=== PATIENT | male | born 1975 | race Caucasian/White ===

== ENCOUNTER 2016-10-31 21:52 | Inpatient (IN) | payer BC, OTHER ==
[~2016-10-31] VITALS: Ht 182.9 cm; Wt 112.1 kg
[2016-10-31] MEDS ORDERED: LISI1TAB6 (22:06)
[2016-10-31] MEDS ORDERED: ASPIRIN 81 MG CHEW (CHILDREN'S ASA) ONE (22:12)
[2016-10-31] MEDS ORDERED: NITROGLYCERIN 2% OINT 1 GM UNIT DOSE PACKET ONE (22:12)
[2016-10-31] MEDS ORDERED: NITROGLYCERIN 2% OINT 1 GM UNIT DOSE PACKET TOP ONE (22:15)
[2016-10-31] MEDS ORDERED: ASPIRIN 81 MG CHEW (CHILDREN'S ASA) PO ONE (22:15)
[2016-10-31 22:22] LABS: BASOPHILS % (AUTO) 1 % (0-10); EOSINOPHILS # (AUTO) 0.1 10^3/uL (0.0-0.3); EOSINOPHILS % (AUTO) 2 % (0-10); LYMPHOCYTES # (AUTO) 2.5 X 10^3 (1.0-4.0); LYMPHOCYTES % (AUTO) 29 % (12-44); MEAN CORPUSCULAR HEMOGLOBIN 29 PG (25-34); MEAN CORPUSCULAR HGB CONC 35 G/DL (32-36); MEAN CORPUSCULAR VOLUME 83 FL (80-99); MEAN PLATELET VOLUME 9.7 FL (7.4-10.4); MONOCYTES # (AUTO) 0.5 X 10^3 (0.0-1.0); MONOCYTES % (AUTO) 6 % (0-12); NEUTROPHILS # (AUTO) 5.5 X 10^3 (1.8-7.8); NEUTROPHILS % (AUTO) 63 % (42-75); PLATELET COUNT 251 10^3/uL (130-400); RED BLOOD COUNT 4.85 10^6/uL (4.35-5.85); RED CELL DISTRIBUTION WIDTH 13.6 % (10.0-14.5); WHITE BLOOD COUNT 8.7 10^3/uL (4.3-11.0)
[2016-10-31 22:25] LABS: INR 0.9 (0.8-1.4); PROTHROMBIN TIME PATIENT 11.9 SEC (12.2-14.7)
[2016-10-31 22:38] LABS: ALANINE AMINOTRANSFERASE 19 U/L (0-55); ALBUMIN 4.4 GM/DL (3.2-4.5); AMYLASE 49 U/L (25-125); ANION GAP 13 MMOL/L (5-14); ASPARTATE AMINO TRANSFERASE 21 U/L (5-34); BILIRUBIN,TOTAL 0.5 MG/DL (0.1-1.0); BLOOD UREA NITROGEN 16 MG/DL (7-18); BUN/CREATININE RATIO 14 (0-20); CALCIUM 9.5 MG/DL (8.5-10.1); CARBON DIOXIDE 24 MMOL/L (21-32); CHLORIDE 105 MMOL/L (98-107); CREATINE KINASE 194 U/L (30-200); CREATININE SERUM 1.16 MG/DL (0.60-1.30); GFR ESTIMATED > 60; GLUCOSE 113 MG/DL (70-105); HEMOLYSIS 19 (-100-29); ICTERUS 0.7 (-100-1.9); LIPASE 48 U/L (8-78); LIPEMIA 44 (-100-49); MAGNESIUM 2.4 MG/DL (1.8-2.4); POTASSIUM 3.6 MMOL/L (3.6-5.0); SODIUM 142 MMOL/L (135-145); TOTAL PROTEIN 7.3 GM/DL (6.4-8.2)
[2016-10-31 22:45] LABS: TROPONIN I < 0.30 NG/ML (<0.30)
[2016-10-31] MEDS ORDERED: ENALAPRILAT 2.5 MG/2 ML (VASOTEC) VIAL IV ONE (23:00)
[2016-10-31] MEDS ORDERED: meTOproloL SUCCINATE 50 MG (TOPROL XL) TAB PO SCH (23:00)
[2016-10-31] MEDS ORDERED: meTOprolol 5 MG/5 ML (LOPRESSOR) VIAL IV ONE (23:00)
[2016-11-01] VITALS (32 sets, daily range): BP systolic 141–207; BP diastolic 87–133
[2016-11-01] MEDS ORDERED: morphine INJ 4 MG/ML 1 ML (VIAL/SYRINGE) IVP PRN ×2 (01:00→01:45)
[2016-11-01] MEDS ORDERED: meTOprolol 5 MG/5 ML (LOPRESSOR) VIAL IV PRN (01:00)
[2016-11-01] MEDS ORDERED: ENALAPRILAT 2.5 MG/2 ML (VASOTEC) VIAL IV PRN (01:00)
[2016-11-01] MEDS ORDERED: NITROGLYCERIN SUBLINGUAL 0.4 MG TAB (NITROSTAT) SL PRN (01:00)
--- NOTE | 2016-11-01 03:41 | ED Chest Pain ---
General Chief Complaint: Chest Pain Stated Complaint: CHEST PAIN; UNCONTROLLED HTN Nursing Triage Note: AMB TO ED REPORTING CHEST PAIN STARTING APPROX 15 MIN WELCOME [place] HOSTESS. WAS WALKING NEAR HOSPITAL WHEN FEELING A POKING SENSATION IN LEFT SIDED CHEST INTO LEFT POSTERIOR SHOULDER. REPORTS FEELING OF FLUSHED SENSATION DOWN ARMS AND LEGS WITH DIAPHORESIS. Nursing Sepsis Screen: No Definite Risk Source: patient History of Present Illness Time seen by provider: 21:54 Initial Comments PT STATES HE AND FEMALE S.O. WERE WALKING THIS EVENING AND HAD WALKED APPROXIMATELY 1/2 MILE, WHEN HE BEGAN TO HAVE PAIN IN CHEST, FELT LIGHTHEADED, SWEATING AND FEELING VERY FLUSHED --BEGAN APPROXIMATELY 10-15 MINUTES AGO, AND SO THEY WALKED HERE TO ER, IT WAS CLOSER TO WALK HERE THAN WALK BACK HOME. STATES PAIN IS A "POKING" SENSATION IN CHEST NO NAUSEA STATES HEART WAS BEATING HARD NO SWELLING IN LEGS/ FEET OR PAIN IN CALVES. NO RECENT TRAVEL SAME THING HAPPENED LAST NIGHT DURING INTERCOURSE BOTH TIMES, THE CHEST PAIN WENT AWAY WITH REST. NO SHORTNESS OF BREATH NO HISTORY OF PRIOR PT DOES HAVE HTN, AND DENIES ANY MISSED DOSES OF MEDICATIONS PT'S PCP IS DR. DAMIAN, BUT PT ADMITS TO BEING NON-COMPLIANT WITH FOLLOW UP VISITS AND STATES HE HAS "ONLY SEEN HIM TWICE IN THE LAST 20 YEARS" PT DOES NOT KNOW WHAT HIS NORMAL BP IS, HE NEVER CHECKS IT Allergies and Home Medications Allergies Coded Allergies: No Known Drug Allergies (Unverified , 10/31/16) Home Medications Lisinopril/Hydrochlorothiazide 1 Each Tablet, #30 (Reported) Review of Systems Constitutional: see HPI, diaphoresis, dizziness EENTM: No Symptoms Reported Respiratory: No Symptoms Reported Cardiovascular: See HPI, Chest Pain, Denies Edema, Denies Irregular Heart Rate , Lightheadedness, Palpitations, Denies Syncope Gastrointestinal: No Symptoms Reported, Denies Nausea Genitourinary: No Symptoms Reported Musculoskeletal: no symptoms reported Skin: see HPI Psychiatric/Neurological: No Symptoms Reported, Denies Paresthesia, Denies Weakness Endocrine: No Symptoms Reported Hematologic/Lymphatic: No Symptoms Reported Past Ysmorjj-Gvhuwx-Qbivfu Hx Patient Social History Alcohol Use: Occasionally Uses Recreational Drug Use: Yes (THC ) Smoking Status: Current Everyday Smoker (2 PACKS/WEEK) Type Used: Cigarettes Recent Foreign Travel: No Contact w/Someone Who Travel: No Recent Infectious Disease Expo: No Recent Hopitalizations: No Physical Abuse Screen: No Sexual Abuse: No Seasonal Allergies Seasonal Allergies: No Surgeries HX Surgeries: No Respiratory Hx Respiratory Disorders: No Cardiovascular Hx Cardiac Disorders: Yes Cardiac Disorders: Hypertension Neurological Hx Neurological Disorders: No Reproductive System Hx Reproductive Disorders: No Genitourinary Hx Genitourinary Disorders: No Gastrointestinal Hx Gastrointestinal Disorders: No Musculoskeletal Hx Musculoskeletal Disorders: No Endocrine Hx Endocrine Disorders: No HEENT HX ENT Disorders: No Cancer Hx Cancer: No Psychosocial Hx Psychiatric Problems: No Integumentary HX Skin/Integumentary Disorder: No Blood Transfusions Hx Blood Disorders: No Adverse Reaction to a Blood Tr: No Family Medical History Family Medial History: Hypertension 19 FATHER 19 MOTHER Physical Exam Vital Signs Vital Sign - Last 12Hours Capillary Refill : Less Than 3 Seconds General Appearance: No Apparent Distress, WD/WN HEENT: PERRL/EOMI Neck: Full Range of Motion, Normal Inspection, Non Tender, Supple, No Carotid Bruit, No JVD Respiratory: Chest Non Tender, Normal Breath Sounds, No Accessory Muscle Use, No Respiratory Distress Cardiovascular: Regular Rate, Rhythm, No Edema, No JVD, No Murmur, Normal Peripheral Pulses Gastrointestinal: Normal Bowel Sounds, No Organomegaly, No Pulsatile Mass, Non Tender, Soft Extremity: Normal Capillary Refill, Normal Inspection, Normal Range of Motion, Non Tender, No Calf Tenderness, No Pedal Edema Neurologic/Psychiatric: Alert, Oriented x3, No Motor/Sensory Deficits, Normal Mood/Affect, timber cutter II-XII Norm as Tested Skin: Normal Color, Diaphoresis Progress/Results/Core Measures Results/Orders Lab Results Laboratory Tests Test 10/31/16 22:00 Range/Units White Blood Count 8.7 4.3-11.0 10^3/uL Red Blood Count 4.85 4.35-5.85 10^6/uL Hemoglobin 14.1 13.3-17.7 G/DL Hematocrit 40 40-54 % Mean Corpuscular Volume 83 80-99 FL Mean Corpuscular Hemoglobin 29 25-34 PG Mean Corpuscular Hemoglobin Concent 35 32-36 G/DL Red Cell Distribution Width 13.6 10.0-14.5 % Platelet Count 251 130-400 10^3/uL Mean Platelet Volume 9.7 7.4-10.4 FL Neutrophils (%) (Auto) 63 42-75 % Lymphocytes (%) (Auto) 29 12-44 % Monocytes (%) (Auto) 6 0-12 % Eosinophils (%) (Auto) 2 0-10 % Basophils (%) (Auto) 1 0-10 % Neutrophils # (Auto) 5.5 1.8-7.8 X 10^3 Lymphocytes # (Auto) 2.5 1.0-4.0 X 10^3 Monocytes # (Auto) 0.5 0.0-1.0 X 10^3 Eosinophils # (Auto) 0.1 0.0-0.3 10^3/uL Basophils # (Auto) 0.0 0.0-0.1 10^3/uL Prothrombin Time 11.9 L 12.2-14.7 SEC INR Comment 0.9 0.8-1.4 Activated Partial Thromboplast Time 32 24-35 SEC Sodium Level 142 135-145 MMOL/L Potassium Level 3.6 3.6-5.0 MMOL/L Chloride Level 105 98-107 MMOL/L Carbon Dioxide Level 24 21-32 MMOL/L Anion Gap 13 5-14 MMOL/L Blood Urea Nitrogen 16 7-18 MG/DL Creatinine 1.16 0.60-1.30 MG/DL Estimat Glomerular Filtration Rate > 60 BUN/Creatinine Ratio 14 0-20 Glucose Level 113 H 70-105 MG/DL Calcium Level 9.5 8.5-10.1 MG/DL Magnesium Level 2.4 1.8-2.4 MG/DL Total Bilirubin 0.5 0.1-1.0 MG/DL Aspartate Amino Transf (AST/SGOT) 21 5-34 U/L Alanine Aminotransferase (ALT/SGPT) 19 0-55 U/L Alkaline Phosphatase 71 40-136 U/L Total Creatine Kinase 194 30-200 U/L Creatine Kinase MB 2.2 <6.6 NG/ML Troponin I < 0.30 <0.30 NG/ML B-Type Natriuretic Peptide 63.3 <100.0 PG/ML Total Protein 7.3 6.4-8.2 GM/DL Albumin 4.4 3.2-4.5 GM/DL Amylase Level 49 25-125 U/L Lipase 48 8-78 U/L My Orders Orders - YANETH DE LA PAZ DO Amylase (10/31/16 22:13) Cbc With Automated Diff (10/31/16 22:13) Comprehensive Metabolic Panel (10/31/16 22:13) Creatine Kinase (10/31/16 22:13) Creatine Kinase Mb (10/31/16 22:13) Lipase (10/31/16 22:13) Partial Thromboplastin Time (10/31/16 22:13) Protime With Inr (10/31/16 22:13) Troponin I (10/31/16 22:13) Chest 1 View, Ap/Pa Only (10/31/16 22:13) O2 (10/31/16 22:13) Ekg Tracing (10/31/16 22:13) Aspirin Chewable Tablet (Baby Aspirin Ch (10/31/16 22:15) BNP (10/31/16 22:13) Monitor-Rhythm Ecg Trace Only (10/31/16 22:13) Magnesium (10/31/16 22:13) Nitroglycerin Ointment (Nitrobid Ointme (10/31/16 22:15) Nitroglycerin Ointment (Nitrobid Ointme (10/31/16 22:12) Aspirin Chewable Tablet (Baby Aspirin Ch (10/31/16 22:12) Medications Given in ED Current Medications Medications Dose Ordered Sig/Oliver Route Start Time Stop Time Status Last Admin Dose Admin Aspirin 324 mg ONCE ONCE PO 10/31/16 22:15 10/31/16 22:16 DC 10/31/16 22:17 324 MG Nitroglycerin 1 inch ONCE ONCE TOP 10/31/16 22:15 10/31/16 22:16 DC 10/31/16 22:17 1 INCH Vital Signs/I&O Vital Sign - Last 12Hours 10/31/16 10/31/16 21:52 21:52 Temp 98.2 Pulse 106 Resp 20 B/P (MAP) 193/134 Pulse Ox 96 O2 Delivery Room Air Room Air Blood Pressure Mean: 117 Progress Note : Progress Note PAIN EASED AND BP DOWN WITH MEDICATIONS NO DETERIORATION IN PT'S CONDITION DURING ER STAY ECG Initial ECG Impression Time: 21:58 Initial ECG Rate: 93 Initial ECG Rhythm: Normal Sinus Initial ECG Comparisson: No Previous ECG Available Diagnostic Imaging Comments XCR--NO ACUTE PROCESS, PENDING RADIOLOGIST REVIEW Reviewed: Reviewed by Me Departure Communication Progress Notes 2219--SPOKE WITH DR. DAMIAN, ACCEPTS PT FOR ADMIT. Impression Impression: Primary Impression: Chest pain Additional Impression: Uncontrolled hypertension Disposition: ADMITTED INPATIENT Condition: Improved Decision to Admit Reason: Admit from ER (General) Decision to Admit/Date: Oct 31, 2016 Time/Decision to Admit Time: 22:20 Departure-Patient Inst. Referrals: CHENG DAMIAN DO (PCP) Primary Care Physician YANETH DE LA PAZ DO Nov 01, 2016 03:41
[2016-11-01] MEDS ORDERED: NITROGLYCERIN 2% OINT 1 GM UNIT DOSE PACKET TOP SCH (04:00)
[2016-11-01 04:30] LABS: BASOPHILS % (AUTO) 0 % (0-10); EOSINOPHILS # (AUTO) 0.2 10^3/uL (0.0-0.3); EOSINOPHILS % (AUTO) 2 % (0-10); LYMPHOCYTES # (AUTO) 1.9 X 10^3 (1.0-4.0); LYMPHOCYTES % (AUTO) 20 % (12-44); MEAN CORPUSCULAR HEMOGLOBIN 29 PG (25-34); MEAN CORPUSCULAR HGB CONC 35 G/DL (32-36); MEAN CORPUSCULAR VOLUME 83 FL (80-99); MEAN PLATELET VOLUME 9.9 FL (7.4-10.4); MONOCYTES # (AUTO) 0.5 X 10^3 (0.0-1.0); MONOCYTES % (AUTO) 6 % (0-12); NEUTROPHILS # (AUTO) 6.6 X 10^3 (1.8-7.8); NEUTROPHILS % (AUTO) 72 % (42-75); PLATELET COUNT 258 10^3/uL (130-400); RED BLOOD COUNT 4.74 10^6/uL (4.35-5.85); RED CELL DISTRIBUTION WIDTH 13.7 % (10.0-14.5); WHITE BLOOD COUNT 9.2 10^3/uL (4.3-11.0)
[2016-11-01 04:47] LABS: ALANINE AMINOTRANSFERASE 19 U/L (0-55); ANION GAP 14 MMOL/L (5-14); ASPARTATE AMINO TRANSFERASE 21 U/L (5-34); BILIRUBIN,TOTAL 0.4 MG/DL (0.1-1.0); BLOOD UREA NITROGEN 15 MG/DL (7-18); BUN/CREATININE RATIO 16 (0-20); CALCIUM 9.1 MG/DL (8.5-10.1); CARBON DIOXIDE 23 MMOL/L (21-32); CHLORIDE 106 MMOL/L (98-107); CREATININE SERUM 0.94 MG/DL (0.60-1.30); GFR ESTIMATED > 60; GLUCOSE 101 MG/DL (70-105); HEMOLYSIS 18 (-100-29); ICTERUS 0.5 (-100-1.9); LIPEMIA 59 (-100-49); POTASSIUM 3.6 MMOL/L (3.6-5.0); SODIUM 143 MMOL/L (135-145); TOTAL PROTEIN 6.9 GM/DL (6.4-8.2)
[2016-11-01] MEDS ORDERED: NITROPRUSSIDE IV SCH (06:00)
[2016-11-01] MEDS ORDERED: D5W IV SCH (06:00)
[2016-11-01] MEDS ORDERED: D5W 250 ML (IVPB) 250 ML IV ONE (06:06)
[2016-11-01] MEDS ORDERED: NITROPRUSSIDE 50 MG/2 ML (NIPRIDE) VIAL IV ONE (06:06)
--- NOTE | 2016-11-01 07:44 | Consultation-Cardiology ---
HPI-Cardiology Cardiology Consultation: Date of Consultation 11/01/16 Date of Admission Attending Physician Dorian Pickens DO Admitting Physician Dorian Pickens DO Consulting Physician DEBBIE HOPKINS MD, MA, FACP, FACC, [facility], CCDS Physician requesting consult: Dr Pickens HPI: Chief Complaint: Chest discomfort 40 yo man who had chest discomfort last night: L upper part of chest, during walking, associated with flushing, multiple episodes each lasting a few seconds but frequently repetitive, total duration of all individual episodes was about 15-20 min. He states to me that he doesn't recall having such discomfort before. There was no radiation. It was a poking sensation, mild, localized to an area of a finger-breadth or two. This all resolved when he was at rest He denies syncope of presyncope No leg swelling No palpitations Denies exertional shortness of breath Review of Systems-Cardiology Review of Systems Date Seen by Provider: Nov 01, 2016 Time Seen by Provider: 07:30 Constitutional: No tiredness, No weight loss, No weight gain Eyes: No vision change Ears/Nose/Throat: No ear discharge, No nasal drainage, No recent hearing loss Respiratory: As described under HPI Cardiovascular: As described under HPI Gastrointestinal: No constipation, No nausea, No vomiting Genitourinary: No dysuria, No hematuria Musculoskeletal: No back pain, No joint pain Skin: No rash, No ulcerations Psychiatric/Neurological: No depression, No focal weakness, No seizure Hematologic: No bleeding abnormalities VNU-Uhbxmy-Tjeico Hx Patient Social History Alcohol Use: Occasionally Uses Recreational Drug Use: Yes (THC ) Smoking Status: Current Everyday Smoker (2 PACKS/WEEK) Type Used: Cigarettes Recent Foreign Travel: No Recent Infectious Disease Expo: No Hospitalization with Isolation: Denies Physical Abuse Screen: No Sexual Abuse: No Past Medical History PMH As described under Assessment. Family Medical History Family Medical History: No fam h/o early CAD or SCD Family History: Hypertension 19 FATHER 19 MOTHER Allergies and Home Medications Allergies Coded Allergies: No Known Drug Allergies (Unverified , 10/31/16) Home Medications Lisinopril/Hydrochlorothiazide 1 Each Tablet, #30 (Reported) Physical Exam-Cardiology Physical Exam Vital Signs/I&O Vital Sign - Last 12Hours 10/31/16 10/31/16 10/31/16 11/01/16 21:52 21:52 23:25 00:00 Temp 98.2 98.2 Pulse 106 63 Resp 20 20 B/P (MAP) 193/134 Pulse Ox 96 96 95 O2 Delivery Room Air Room Air Nasal Cannula Room Air O2 Flow Rate 2.00 2.00 11/01/16 11/01/16 11/01/16 11/01/16 00:15 00:15 00:30 00:45 Temp 97.5 Pulse 71 63 56 B/P (MAP) 158/105 168/106 162/108 Pulse Ox 95 96 98 O2 Delivery Nasal Cannula Nasal Cannula Nasal Cannula Nasal Cannula O2 Flow Rate 2.00 2.00 2.00 2.00 11/01/16 11/01/16 11/01/16 11/01/16 01:00 01:10 01:15 01:30 Pulse 60 59 56 56 B/P (MAP) 161/102 157/112 165/105 Pulse Ox 98 98 97 O2 Delivery Nasal Cannula Nasal Cannula Nasal Cannula O2 Flow Rate 2.00 2.00 2.00 11/01/16 11/01/16 11/01/16 11/01/16 01:45 02:00 02:15 02:30 Pulse 61 53 56 50 B/P (MAP) 146/99 151/98 156/99 141/97 Pulse Ox 97 98 96 95 O2 Delivery Nasal Cannula Nasal Cannula Nasal Cannula Nasal Cannula O2 Flow Rate 2.00 2.00 2.00 2.00 11/01/16 11/01/16 11/01/16 11/01/16 02:45 03:00 03:15 03:30 Pulse 47 48 53 53 B/P (MAP) 160/99 148/101 148/101 175/102 Pulse Ox 95 94 95 95 O2 Delivery Nasal Cannula Nasal Cannula Nasal Cannula Nasal Cannula O2 Flow Rate 2.00 2.00 2.00 2.00 11/01/16 11/01/16 11/01/16 11/01/16 03:45 04:00 04:00 04:15 Pulse 60 48 50 B/P (MAP) 150/108 156/112 165/115 Pulse Ox 97 98 96 O2 Delivery Nasal Cannula Nasal Cannula Nasal Cannula Nasal Cannula O2 Flow Rate 2.00 2.00 2.00 2.00 11/01/16 11/01/16 11/01/16 11/01/16 04:30 05:34 05:34 06:00 Temp 97.7 Pulse 49 66 55 B/P (MAP) 162/107 184/130 192/128 Pulse Ox 96 98 99 O2 Delivery Nasal Cannula Nasal Cannula Nasal Cannula O2 Flow Rate 2.00 2.00 2.00 11/01/16 11/01/16 11/01/16 11/01/16 06:15 06:20 06:30 06:45 Temp 97.7 Pulse 55 55 68 62 Resp 20 17 B/P (MAP) 184/125 184/125 183/105 160/102 Pulse Ox 99 99 97 97 O2 Delivery Nasal Cannula Nasal Cannula Nasal Cannula O2 Flow Rate 2.00 2.00 2.00 2.00 Capillary Refill : Less Than 3 Seconds Constitutional: AAO x 3, well-developed, well-nourished HEENT: PERRL, EOMI, No xanthelasmas are seen Neck: carotid pulses are 2 + bilaterally, with good upstrokes Respiratory: No accessory muscle use, lungs clear to percussion Cardiovascular: regular rate-rhythm, S1 and S2, systolic murmur (faint PAXTON at card base) Gastrointestinal: No tender, soft, No guarding, No rebound, audible bowel sounds Extremities: No clubbing, No cyanosis, No significant edema Neurologic/Psychiatric: grossly intact, power is 5/5 both on sides Skin: No rash on exposed areas, No ulcerations on exposed areas Data Review Labs Laboratory Tests 10/31/16 22:00: White Blood Count 8.7, Red Blood Count 4.85, Hemoglobin 14.1, Hematocrit 40, Mean Corpuscular Volume 83, Mean Corpuscular Hemoglobin 29, Mean Corpuscular Hemoglobin Concent 35, Red Cell Distribution Width 13.6, Platelet Count 251, Mean Platelet Volume 9.7, Neutrophils (%) (Auto) 63, Lymphocytes (%) (Auto) 29, Monocytes (%) (Auto) 6, Eosinophils (%) (Auto) 2, Basophils (%) (Auto) 1, Neutrophils # (Auto) 5.5, Lymphocytes # (Auto) 2.5, Monocytes # (Auto) 0.5, Eosinophils # (Auto) 0.1, Basophils # (Auto) 0.0, Prothrombin Time 11.9L, INR Comment 0.9, Activated Partial Thromboplast Time 32, Sodium Level 142, Potassium Level 3.6, Chloride Level 105, Carbon Dioxide Level 24, Anion Gap 13, Blood Urea Nitrogen 16, Creatinine 1.16, Estimat Glomerular Filtration Rate > 60 , BUN/Creatinine Ratio 14, Glucose Level 113H, Calcium Level 9.5, Magnesium Level 2.4, Total Bilirubin 0.5, Aspartate Amino Transf (AST/SGOT) 21, Alanine Aminotransferase (ALT/SGPT) 19, Alkaline Phosphatase 71, Total Creatine Kinase 194, Creatine Kinase MB 2.2, Troponin I < 0.30, B-Type Natriuretic Peptide 63.3 , Total Protein 7.3, Albumin 4.4, Amylase Level 49, Lipase 48 11/01/16 03:46: White Blood Count 9.2, Red Blood Count 4.74, Hemoglobin 13.8, Hematocrit 39L, Mean Corpuscular Volume 83, Mean Corpuscular Hemoglobin 29, Mean Corpuscular Hemoglobin Concent 35, Red Cell Distribution Width 13.7, Platelet Count 258, Mean Platelet Volume 9.9, Neutrophils (%) (Auto) 72, Lymphocytes (%) (Auto) 20, Monocytes (%) (Auto) 6, Eosinophils (%) (Auto) 2, Basophils (%) (Auto) 0, Neutrophils # (Auto) 6.6, Lymphocytes # (Auto) 1.9, Monocytes # (Auto) 0.5, Eosinophils # (Auto) 0.2, Basophils # (Auto) 0.0, Sodium Level 143, Potassium Level 3.6, Chloride Level 106, Carbon Dioxide Level 23, Anion Gap 14, Blood Urea Nitrogen 15, Creatinine 0.94, Estimat Glomerular Filtration Rate > 60, BUN/ Creatinine Ratio 16, Glucose Level 101, Calcium Level 9.1, Total Bilirubin 0.4, Aspartate Amino Transf (AST/SGOT) 21, Alanine Aminotransferase (ALT/SGPT) 19, Alkaline Phosphatase 67, Troponin I < 0.30, Total Protein 6.9, Albumin 4.0 Laboratory Tests 10/31/16 22:00 11/01/16 03:46 ECG Impression ECG Comment Serial ECGs since admission: NSR with nonspecific IVCD; no significant ST abn or ECG evidence of ischemia A/P-Cardiology Assessment/Admission Diagnosis Nonspecific chest discomfort w/o any evidence of [place] Uncontrolled hypertension JESSICA, as noted by his Up to 4 sec pause during sleep Hypertriglyceridemia Occasional smoker for several years Discussion and Recomendations * Several issues discussed with him and his in detail * For bp control, we are initiating an iv regimen and then titrate his oral regimen * We will carry out echo to eval for structural heart disease * Bradycardia is mostly sleep-related and does report sleep apnea. We will continue to observe on tele and have advised sleep studies * We advise renal artery u/s * For eval for chest discomfort, we recommend exercise stress MPI * We have advised immediate and complete smoking cessation * We recommend a lipid profile to eval need for therapy Clinical Quality Measures AMI/AHF: ASA po Prior to arrival: No DVT/VTE Risk/Contraindication: Risk Factor Score Per Nursin RFS Level Per Nursing on Admit: 2=Moderate DEBBIE HOPKINS MD FACP FAC CCDS Nov 01, 2016 07:44
--- NOTE | 2016-11-01 07:48 | Diagnostic Imaging Report ---
INDICATION: Hypertension, dizziness, chest pain. TECHNIQUE: Single-view chest 10:25 PM. CORRELATION STUDY: None. FINDINGS: Heart size enlarged. Vasculature within normal limits. Mediastinum very mildly prominent. Lung stein are clear. No definitive infiltrate or effusion. IMPRESSION: Cardiac enlargement without failure or otherwise acute findings of the chest. Dictated by: Dictated on workstation # [id number]
[2016-11-01] MEDS ORDERED: amLODIPine 5 MG (NORVASC) TAB PO SCH (09:00)
[2016-11-01] MEDS ORDERED: doxAzosin 2 MG (CARDURA) TAB PO SCH (09:00)
[2016-11-01] MEDS ORDERED: meTOproloL SUCCINATE 50 MG (TOPROL XL) TAB PO SCH (09:00)
[2016-11-01] MEDS ORDERED: lisINopril 20 MG (ZESTRIL) TAB PO SCH ×2 (09:00)
[2016-11-01] MEDS ORDERED: HYDROCHLOROTHIAZIDE 25 MG (HCTZ) TAB PO SCH (09:00)
[2016-11-01] MEDS ORDERED: ASPIRIN E.C. 325 MG (ECOTRIN) TABLET PO SCH (09:00)
[2016-11-01] MEDS ORDERED: ENOXAPARIN 40 MG/0.4 ML (LOVENOX) SYR SC SCH ×2 (09:15→09:30)
--- NOTE | 2016-11-01 09:18 | History & Physicial ---
History of Present Illness History of Present Illness Reason for visit/HPI patient came out to the emergency room due to having chest pain. Patient chest pain consistent out for poking sensation on the left side of the chest Patient was on a walk. Patient's blood pressure very high at that time. Patient has a history of sleep apnea where he snores and stops breathing for 3- 4 seconds. Patient has a history of hypertension Date of Admission Nov 01, 2016 at 6:00 am Time Seen by Provider: 09:05 I consulted on this patient on 11/01/16 09:06 Attending Physician Dorian Damian DO Admitting Physician Dorian Damian DO Consult Allergies and Home Medications Allergies Coded Allergies: No Known Drug Allergies (Unverified , 10/31/16) Home Medications Lisinopril/Hydrochlorothiazide 1 Each Tablet, #30 (Reported) Past Ssqrhbk-Vruhtc-Pqfurq Hx Patient Social History Employed/Student: employed Alcohol Use: Occasionally Uses Recreational Drug Use: Yes (THC ) Smoking Status: Current Everyday Smoker (2 PACKS/WEEK) Type Used: Cigarettes Physical Abuse Screen: No Sexual Abuse: No Recent Foreign Travel: No Contact w/other who traveled: No Recent Hopitalizations: No Recent Infectious Disease Expo: No Seasonal Allergies Seasonal Allergies: No Surgeries HX Surgeries: No Respiratory Hx Respiratory Disorders: No Cardiovascular Hx Cardiovascular Disorders: Yes Cardiac Disorders: Hypertension Neurological Hx Neurological Disorders: No Reproductive System Hx Reproductive Disorders: No Genitourinary Hx Genitourinary Disorders: No Gastrointestinal Hx Gastrointestinal Disorders: No Musculoskeletal Hx Musculoskeletal Disorders: No Endocrine Hx Endocrine Disorders: No HEENT HX ENT Disorders: No Cancer Hx Cancer: No Psychosocial Hx Psychiatric Problems: No Integumentary HX Skin/Integumentary Disorder: No Blood Transfusions Hx Blood Disorders: No Adverse Reaction to a Blood Tr: No Family Medical History Family Hx: Hypertension 19 FATHER 19 MOTHER Constitutional: no symptoms reported EENTM: no symptoms reported Respiratory: other (obstructive sleep apnea, stops breathing 3-4 seconds, snores) Gastrointestinal: no symptoms reported Genitourinary: no symptoms reported Physical Exam Vital Signs Vital Sign - Last 12Hours 10/31/16 23:25 O2 Flow Rate 2.00 Capillary Refill : Less Than 3 Seconds General Appearance: No Apparent Distress, WD/WN Eyes: Bilateral Eye Normal Inspection HEENT: Normal ENT Inspection Neck: Full Range of Motion, Normal Inspection Respiratory: Chest Non Tender, Lungs Clear, Normal Breath Sounds, No Accessory Muscle Use, No Respiratory Distress Cardiovascular: Regular Rate, Rhythm, No Murmur, Other (no chest pain to palpation) Gastrointestinal: Non Tender, Soft Assessment/Plan Assessment and Plan chest discomfort. Malignant hypertension. Obstructive sleep apnea Problems: Clinical Quality Measures AMI/AHF: ASA po Prior to arrival: No DVT/VTE Risk/Contraindication: Risk Factor Score Per Nursin RFS Level Per Nursing on Admit: 2=Moderate DORIAN DAMIAN DO Nov 01, 2016 9:18 am
--- NOTE | 2016-11-01 11:20 | Diagnostic Imaging Report ---
INDICATION: Uncontrolled hypertension. TECHNIQUE: Multiple real-time grayscale sonographic images, color and duplex Doppler images were obtained of the urinary system. FINDINGS: The aortic velocity is 87 cm/sec. The RIGHT kidney measures 13.3 cm. No hydronephrosis or nephrolithiasis is identified. No tardus parvus wave forms are identified. The maximum right renal artery velocity is in the proximal aspect at 133cm/sec, renal artery/aortic ratio 1.5. The LEFT kidney measures 13.8 cm. No hydronephrosis or nephrolithiasis is identified. No tardus parvus wave forms are identified. The maximum left renal artery velocity is distally at 94cm/sec, renal artery/aortic ratio 1.0. The urinary bladder is unremarkable. Bilateral ureteral jets visualized. IMPRESSION: 1. Unremarkable renal ultrasound with doppler. Dictated by: Dictated on workstation # [id number]
[2016-11-01] MEDS ORDERED: hydrALAZINE (APRESOLINE) 25 MG TAB PO NR (13:37)
[2016-11-01] MEDS ORDERED: ACETAMINOPHEN 500 MG TAB (TYLENOL) PO PRN (14:30)
--- NOTE | 2016-11-01 14:32 | Cardiology Discharge Summary ---
Diagnosis/Chief Complaint Date of Admission Nov 01, 2016 at 06:00 Date of Discharge Admission Diagnosis Nonspecific chest discomfort w/o any evidence of [place] Uncontrolled hypertension JESSICA, as noted by his Up to 4 sec pause during sleep Hypertriglyceridemia Occasional smoker for several years Final/Discharge Diagnosis Nonspecific chest discomfort w/o any evidence of [place] Uncontrolled hypertension JESSICA, as noted by his Up to 4 sec pause during sleep Hypertriglyceridemia Occasional smoker for several years Chief Complaint/HPI Chief Complaint/HPI 40 yo man who had chest discomfort last night: L upper part of chest, during walking, associated with flushing, multiple episodes each lasting a few seconds but frequently repetitive, total duration of all individual episodes was about 15-20 min. He states to me that he doesn't recall having such discomfort before. There was no radiation. It was a poking sensation, mild, localized to an area of a finger-breadth or two. This all resolved when he was at rest He denies syncope of presyncope No leg swelling No palpitations Denies exertional shortness of breath HOSPITAL COURSE: Hypertension has continued. We have adjusted regimen further. Echo within normal limits. Unremarkable renal u/s and doppler, per report. His family () remains very concerned. I had a long conversation with her. She would feel more comfortable at a tertiary care facility and states that is what she has been advised by her family/friends. Accordingly, I called Dr Marroquin of the Cardiology Service at [facility], spoke with him, explained Mr Bethea's history and requested transfer. Dr Marroquin has accepted the patient. The patient is stable at this time. Arrangements for transfer are being made at the time of this writing Discharge Summary Procedures None. Discussion & Recommendations Home Medications Reviewed patient Home Medication Reconciliation Form Discharge Home Medications: Reviewed and agree with Discharge Medication list on patient's Discharge Instruction sheet Clinical Quality Measures AMI/AHF: ASA po Prior to arrival: No DVT/VTE Risk/Contraindication: Risk Factor Score Per Nursin RFS Level Per Nursing on Admit: 2=Moderate DEBBIE HOPKINS MD FACP FAC CCDS Nov 01, 2016 14:32
[2016-11-01 14:47] LABS: BILIRUBIN,URINE NEGATIVE (NEGATIVE); KETONES,URINE NEGATIVE (NEGATIVE); LEUKOCYTE ESTERASE ,URINE NEGATIVE (NEGATIVE); NITRITE,URINE NEGATIVE (NEGATIVE); PH,URINE 6.5 (5-9); PROTEIN,URINE NEGATIVE (NEGATIVE); UROBILINOGEN,URINE NORMAL (NORMAL)
[2016-11-01] MEDS ORDERED: hydrALAZINE (APRESOLINE) 25 MG TAB PO SCH (22:00)
--- NOTE | 2016-11-03 07:21 | Discharge Summary ---
Diagnosis/Chief Complaint Date of Admission Nov 01, 2016 at 06:00 Date of Discharge Nov 01, 2016 at 16:00 Admission Diagnosis Admission Diagnosis chest discomfort. Malignant hypertension. Obstructive sleep apnea Discharge Diagnosis malignant hypertension. Nicotine dependence. Obstructive sleep apnea. Chest discomfort. Hyperlipidemia Reason Hospital Visit patient came out to the emergency room due to having chest pain. Patient chest pain consistent out for poking sensation on the left side of the chest Patient was on a walk. Patient's blood pressure very high at that time. Patient has a history of sleep apnea where he snores and stops breathing for 3- 4 seconds. Patient has a history of hypertension Discharge Summary Consultations cardiology Discharge Physical Examination Allergies: Coded Allergies: No Known Drug Allergies (Unverified , 10/31/16) Vitals & I&Os Vital Signs Date Time Temp Pulse Resp B/P (MAP) Pulse Ox O2 Delivery O2 Flow Rate FiO2 11/01/16 15:00 91 20 143/89 96 Nasal Cannula 2.00 11/01/16 12:12 98.6 Hospital Course blood pressure coming down. wanted patient to be transferred to [facility] in [facility] (last 24 hrs) Laboratory Tests 10/31/16 22:00: White Blood Count 8.7, Red Blood Count 4.85, Hemoglobin 14.1, Hematocrit 40, Mean Corpuscular Volume 83, Mean Corpuscular Hemoglobin 29, Mean Corpuscular Hemoglobin Concent 35, Red Cell Distribution Width 13.6, Platelet Count 251, Mean Platelet Volume 9.7, Neutrophils (%) (Auto) 63, Lymphocytes (%) (Auto) 29, Monocytes (%) (Auto) 6, Eosinophils (%) (Auto) 2, Basophils (%) (Auto) 1, Neutrophils # (Auto) 5.5, Lymphocytes # (Auto) 2.5, Monocytes # (Auto) 0.5, Eosinophils # (Auto) 0.1, Basophils # (Auto) 0.0, Prothrombin Time 11.9L, INR Comment 0.9, Activated Partial Thromboplast Time 32, Sodium Level 142, Potassium Level 3.6, Chloride Level 105, Carbon Dioxide Level 24, Anion Gap 13, Blood Urea Nitrogen 16, Creatinine 1.16, Estimat Glomerular Filtration Rate > 60 , BUN/Creatinine Ratio 14, Glucose Level 113H, Calcium Level 9.5, Magnesium Level 2.4, Total Bilirubin 0.5, Aspartate Amino Transf (AST/SGOT) 21, Alanine Aminotransferase (ALT/SGPT) 19, Alkaline Phosphatase 71, Total Creatine Kinase 194, Creatine Kinase MB 2.2, Troponin I < 0.30, B-Type Natriuretic Peptide 63.3 , Total Protein 7.3, Albumin 4.4, Amylase Level 49, Lipase 48 11/01/16 03:46: White Blood Count 9.2, Red Blood Count 4.74, Hemoglobin 13.8, Hematocrit 39L, Mean Corpuscular Volume 83, Mean Corpuscular Hemoglobin 29, Mean Corpuscular Hemoglobin Concent 35, Red Cell Distribution Width 13.7, Platelet Count 258, Mean Platelet Volume 9.9, Neutrophils (%) (Auto) 72, Lymphocytes (%) (Auto) 20, Monocytes (%) (Auto) 6, Eosinophils (%) (Auto) 2, Basophils (%) (Auto) 0, Neutrophils # (Auto) 6.6, Lymphocytes # (Auto) 1.9, Monocytes # (Auto) 0.5, Eosinophils # (Auto) 0.2, Basophils # (Auto) 0.0, Sodium Level 143, Potassium Level 3.6, Chloride Level 106, Carbon Dioxide Level 23, Anion Gap 14, Blood Urea Nitrogen 15, Creatinine 0.94, Estimat Glomerular Filtration Rate > 60, BUN/ Creatinine Ratio 16, Glucose Level 101, Calcium Level 9.1, Total Bilirubin 0.4, Aspartate Amino Transf (AST/SGOT) 21, Alanine Aminotransferase (ALT/SGPT) 19, Alkaline Phosphatase 67, Troponin I < 0.30, Total Protein 6.9, Albumin 4.0, Thyroid Stimulating Hormone (TSH) 1.45 11/01/16 14:25: Urine Color YELLOW, Urine Clarity CLEAR, Urine pH 6.5, Urine Specific Kimberly 1.015L, Urine Protein NEGATIVE, Urine Glucose (UA) NEGATIVE, Urine Ketones NEGATIVE, Urine Nitrite NEGATIVE, Urine Bilirubin NEGATIVE, Urine Urobilinogen NORMAL, Urine Leukocyte Esterase NEGATIVE, Urine RBC (Auto) 1+H, Urine RBC NONE , Urine WBC NONE, Urine Crystals NONE, Urine Bacteria NEGATIVE, Urine Casts NONE , Urine Mucus NEGATIVE, Urine Culture Indicated NO Laboratory Tests 10/31/16 22:00 11/01/16 03:46 Pending Labs Laboratory Tests 10/31/16 22:00: White Blood Count 8.7, Red Blood Count 4.85, Hemoglobin 14.1, Hematocrit 40, Mean Corpuscular Volume 83, Mean Corpuscular Hemoglobin 29, Mean Corpuscular Hemoglobin Concent 35, Red Cell Distribution Width 13.6, Platelet Count 251, Mean Platelet Volume 9.7, Neutrophils (%) (Auto) 63, Lymphocytes (%) (Auto) 29, Monocytes (%) (Auto) 6, Eosinophils (%) (Auto) 2, Basophils (%) (Auto) 1, Neutrophils # (Auto) 5.5, Lymphocytes # (Auto) 2.5, Monocytes # (Auto) 0.5, Eosinophils # (Auto) 0.1, Basophils # (Auto) 0.0, Prothrombin Time 11.9, INR Comment 0.9, Activated Partial Thromboplast Time 32, Sodium Level 142, Potassium Level 3.6, Chloride Level 105, Carbon Dioxide Level 24, Anion Gap 13, Blood Urea Nitrogen 16, Creatinine 1.16, Estimat Glomerular Filtration Rate > 60 , BUN/Creatinine Ratio 14, Glucose Level 113, Calcium Level 9.5, Magnesium Level 2.4, Total Bilirubin 0.5, Aspartate Amino Transf (AST/SGOT) 21, Alanine Aminotransferase (ALT/SGPT) 19, Alkaline Phosphatase 71, Total Creatine Kinase 194, Creatine Kinase MB 2.2, Troponin I < 0.30, B-Type Natriuretic Peptide 63.3 , Total Protein 7.3, Albumin 4.4, Amylase Level 49, Lipase 48 11/01/16 03:46: White Blood Count 9.2, Red Blood Count 4.74, Hemoglobin 13.8, Hematocrit 39, Mean Corpuscular Volume 83, Mean Corpuscular Hemoglobin 29, Mean Corpuscular Hemoglobin Concent 35, Red Cell Distribution Width 13.7, Platelet Count 258, Mean Platelet Volume 9.9, Neutrophils (%) (Auto) 72, Lymphocytes (%) (Auto) 20, Monocytes (%) (Auto) 6, Eosinophils (%) (Auto) 2, Basophils (%) (Auto) 0, Neutrophils # (Auto) 6.6, Lymphocytes # (Auto) 1.9, Monocytes # (Auto) 0.5, Eosinophils # (Auto) 0.2, Basophils # (Auto) 0.0, Sodium Level 143, Potassium Level 3.6, Chloride Level 106, Carbon Dioxide Level 23, Anion Gap 14, Blood Urea Nitrogen 15, Creatinine 0.94, Estimat Glomerular Filtration Rate > 60, BUN/ Creatinine Ratio 16, Glucose Level 101, Calcium Level 9.1, Total Bilirubin 0.4, Aspartate Amino Transf (AST/SGOT) 21, Alanine Aminotransferase (ALT/SGPT) 19, Alkaline Phosphatase 67, Troponin I < 0.30, Total Protein 6.9, Albumin 4.0, Thyroid Stimulating Hormone (TSH) 1.45 11/01/16 14:25: Urine Color YELLOW, Urine Clarity CLEAR, Urine pH 6.5, Urine Specific Kimberly 1.015, Urine Protein NEGATIVE, Urine Glucose (UA) NEGATIVE, Urine Ketones NEGATIVE, Urine Nitrite NEGATIVE, Urine Bilirubin NEGATIVE, Urine Urobilinogen NORMAL, Urine Leukocyte Esterase NEGATIVE, Urine RBC (Auto) 1+, Urine RBC NONE, Urine WBC NONE, Urine Crystals NONE, Urine Bacteria NEGATIVE, Urine Casts NONE, Urine Mucus NEGATIVE, Urine Culture Indicated NO Radiology Reviewed chest x-ray cardiac enlargement. Renal ultrasound unremarkable renal ultrasound with Doppler Discussion & Recommendations patient transferred to [facility] as per 's request Discharge Home Medications: Active Scripts Active Reported Lisinopril-Hctz 10-12.5 mg Tab (Lisinopril/Hydrochlorothiazide) 1 Each Tablet Instructions to patient/family Please see electonic discharge instructions given to patient. Clinical Quality Measures AMI/AHF: ASA po Prior to arrival: No DVT/VTE Risk/Contraindication: Risk Factor Score Per Nursin RFS Level Per Nursing on Admit: 2=Moderate CHENG DAMIAN DO Nov 03, 2016 07:21
== END 2016-11-01 16:00 | disposition short-term general hospital (02) | DRG 313 ==
LOC: ER 21:54 → ICU 22:20 → OBSVTOIN 11-01 06:00 → ICU 11-01 06:00
PROVIDERS: ADMIT Family Medicine; ATTEND Family Medicine
DX: R07.89 Other chest pain (principal); I10 Essential (primary) hypertension; G47.33 Obstructive sleep apnea (adult) (pediatric); F17.210 Nicotine dependence, cigarettes, uncomplicated; E78.1 Pure hyperglyceridemia
CPT/HCPCS: 36415; 71010; 80053; 81000; 82150; 82550; 82553; 83690; 83735; 83880; 84443; 84484; 85025; 85610; 85730; 93005; 93041; 93306; 93975

== ENCOUNTER → 2022-01-28 | Outpatient (CLI) | payer BC ==
[~2022-01-28] MED LIST: LISI1TAB44
--- NOTE | 2022-01-28 11:55 | Diagnostic Imaging Report ---
PROCEDURE: US Scrotum. TECHNIQUE: Multiple Real-time grayscale images were obtained over the scrotum in various projections bilaterally. INDICATION: Testicular cyst. FINDINGS: There is a left epididymal head cyst as a benign finding measuring 9 mm. The testicular parenchyma itself appears unremarkable. No solid or cystic testicular mass. Small simple hydroceles bilaterally are present. There is no varicocele and no identifiable hernia. Color Doppler blood flow to the testicular parenchyma and epididymides are unremarkable. IMPRESSION: There are very small simple hydroceles with a subcentimeter epididymal head cyst on the left. No testicular pathology or acute appearing abnormalities. Dictated by: Dictated on workstation # [id number]
== END ==
LOC: RAD 10:34
PROVIDERS: ATTEND Internal Medicine
DX: N43.3 Hydrocele, unspecified (principal); N44.2 Benign cyst of testis
CPT/HCPCS: 76870